=== PATIENT | male | born 1970 | race Caucasian/White ===

== ENCOUNTER 2022-12-10 09:23 | Emergency (ER) | payer MEDICAID, SELFPAY ==
[2022-12-10 09:23] VITALS: BP 146/92
[2022-12-10 09:24] VITALS: PULSE 78; RESP 14; TEMP 36.1; O2SAT 97; BMI 28.4
--- NOTE | 2022-12-10 10:12 | ED.VIS.BACK ---
HPI History of Present Illness Chief Complaint: Back Detail of Chief Complaint: Back pain Informant: patient Onset/Context/Timing Onset: Weeks (Approximately 2 to 3 weeks ago) Context: Sudden Onset Injury: bending and work related Timing: Continuous Quality: Dull and Aching Location: Thoracic, Lumbar, Buttock, Right Leg and Left Leg Current Severity: Mild Maximum Severity: Severe Worsened by: improves with Movement, Ambulation, Lifting and Night time pain Relieved by: Nothing Associated Symptoms Associated Symptoms: - (He denies saddle anesthesia. He denies foot drop. He denies buckling of his knees going up or down steps.); Negative for Numbness, Tingling, Radiation to Right Leg, Radiation to Left Leg, Abdominal Pain, Dysuria, Unable to Ambulate, Unable to Transfer, Urinary Retention, Urinary Incontinence, Constipation or Fecal Incontinence Narrative Narrative: Patient is a 52-year-old male with no significant past medical history who presents with low back pain. He was holding drywall. 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 He attempted to prevent the drywall/sheet rock from hitting the floor injuring his back. He states this occurred at work. He states he is not claiming Worker's Comp. He denies bowel bladder dysfunction. No saddle paresthesia anesthesia. Denies radicular pain. Denies foot drop. Denies buckling of his knees going up or down steps. Prior similar symptoms: Yes Recent Illness/Hospitalization: No PFSH PFSH Medical History no medical history no medical history Home Medications naproxen 500 mg tablet (Naprosyn) 500 mg PO BID PRN pain #20 tabs 12/10/22 [Rx Last Taken Unknown] Allergy/AdvReac Type Severity Reaction Status Date / Time No Known Allergies Allergy Verified 12/10/22 09:24 Surgical History no surgical history no surgical history Social History (Updated 12/10/22 @ 10:[address] Rm Enriquez MD) household members: none Smoking Status: Current every day smoker tobacco type: cigarettes substance use type: does not use ROS ROS ED Constitutional Constitutional ED: Denies chills, fever(s), subjective or sweats Eyes Eyes: Denies blurry vision or change in vision ENT ENT ED: Denies ear pain or rhinorrhea Cardiovascular Cardiovascular: Denies chest pain or palpitations Respiratory/Chest Respiratory/Chest: Denies dyspnea or dyspnea on exertion Gastrointestinal Gastrointestinal: Denies abdominal pain, constipation, nausea or vomiting Genitourinary Genitourinary ED: Denies dysuria, hematuria or urinary frequency Musculoskeletal Musculoskeletal: Reports back pain and other Details: Detailed in the HPI portion of the chart ; Denies arthralgias, myalgias or neck pain Neurologic Neurologic: Denies headache(s), paresthesias or weakness Hematologic/Lymphatic Hematologic/Lymphatic: Denies easy bleeding or easy bruising EXAM Physical Exam Const Vital Signs: 12/10/22 09:24 12/10/22 09:23 Temperature 97.0 F L Temperature Source Temporal Pulse Rate 78 Respiratory Rate 14 Blood Pressure 146/92 H Blood Pressure Mean 110 Pulse Ox 97 Oxygen Delivery Method Room Air Positive well nourished, well developed and unkempt General Appearance ED: unkempt and well developed; Negative for NAD or pallor HEENT Reports moist mucous membranes HEENT Narrative: Head is atraumatic normocephalic. Ears normal. Nares patent. Posterior pharynx is normal. Eyes PERRL and EOMs intact bilaterally Neck no lymphadenopathy, supple and no JVD Resp normal respiratory effort and clear to auscultation bilaterally Cardio regular rate, regular rhythm, S1 normal heart sound, S2 normal heart sound and no murmurs GI normal to inspection, nondistended, normoactive bowel sounds, soft to palpation, non-tender, non-distended and no masses GI Narrative: There is no palpable pulsatile mass no abdominal bruit. Back/Spine normal to inspection; Negative for no thoracic nor lumbar tenderness Back/Spine Narrative: Patella and ankle reflex are 2+. Gait observed and normal. There is no foot drop. Able to walk on heels and toes. Able to perform a 1 legged squat right and left. Normal sensation over L3, L4, L5 and S1 dermatome. Bending to right and left predominately causes pain on the left side. Standing on his right foot causes him pain on the left side. General Back: Negative for CVA tenderness Cervical Spine: Negative for cervical spine tenderness Thoracic Spine / Upper Back: paraspinal muscle tenderness Lumbar Spine / Lower Back: ROM limited and straight leg raise negative bilaterally Extremity normal to inspection and no clubbing, cyanosis or edema Extremity Narrative: Distal pulses are noted. He does have hair on his toes. Neuro oriented x3 and no sensory deficits noted Sensorium / Orientation: alert Motor Exam: strength 5/5 throughout Deep Tendon Reflexes: Rt Patellar (L4): 2+, Lt Patellar (L4): 2+, Rt Ankle (S1): 2+ and Lt Ankle (S1): 2+ Deep Tendon Reflexes Back: Rt Patellar (L4): 2+, Lt Patellar (L4): 2+, Rt Ankle (S1): 2+ and Lt Ankle (S1): 2+ Plantar Reflex: Downgoing: bilateral (There is no clonus.) Psych mental status grossly normal Appearance: unkempt Skin no rashes or lesions noted and no wounds General Skin Exam: Negative for jaundice or pallor MDM MDM MDM Narrative Medical decision making narrative: Patient presents with back pain. Differential diagnosis is muscle strain, fracture, herniated disc. Based on history and physical this is muscular pain. Patient does not meet criteria or indication for emergent MRI. Since patient does not have contraindication NSAIDs he was treated with Naprosyn. He was instructed ice and not heat. History & Record Review Additional record(s) reviewed:: Prior inpatient record (There are no inpatient notes.), Prior outpatient record, Prior ED visit (There are several ER visits over the years for musculoskeletal issues.) and Prior labs (There is no evidence of renal insufficiency.) Discharge Plan Triage Chief Complaint: Back ED Provider: Rm Enriquez Dx/Rx/DC Orders Clinical Impression: Acute myofascial strain of lumbar region, Elevated blood pressure reading Prescriptions: New naproxen [Naprosyn] 500 mg tablet 500 mg PO BID PRN (Reason: pain) Qty: 20 0RF Stand Alone Forms: ED Work / School Excuse Primary Care Provider: Care Physician,No Primary Referrals: Care Physician,No Primary [Primary Care Provider] - Doctor,Your [Non-Staff] - 3-5 Days if not improving Activity Restrictions/Additional Instructions: 1. Apply ice to your lower back 6-10 times a day. 2. Application of heat will make your pain worse. 3. Take medication as prescribed 4. If you are unable to urinate or have loss of bowel control or difficulty using your right or left leg return to the emergency department 5. The name of your doctor is located on your insurance card issued to you by [facility] Disposition Disposition: Home, Self Care
== END 2022-12-10 10:36 | disposition home or self-care (01) ==
PROVIDERS: Emergency Provider Emergency Medicine; Visit Provider Emergency Medicine
DX: S39.012A Strain of muscle, fascia and tendon of lower back, initial encounter (principal); F17.210 Nicotine dependence, cigarettes, uncomplicated; R03.0 Elevated blood-pressure reading, without diagnosis of hypertension; Y99.0 Civilian activity done for income or pay
CPT/HCPCS: 99282; A4216

== ENCOUNTER 2022-12-28 08:45 | Emergency (ER) | payer MEDICAID, SELFPAY ==
[2022-12-28 08:46] VITALS: BP 140/118; PULSE 66; RESP 18; TEMP 36.6; O2SAT 99; BMI 27.9
--- NOTE | 2022-12-28 08:57 | EDS_ITS ---
HPI History of Present Illness Chief Complaint: Lower Extremity Injury Informant: patient Narrative Narrative: Patient presents still having pain in his back. He states he twisted when he tried to catch a falling piece of drywall about 3 weeks ago. He was seen here once. He has been seen twice in the chiropractor office. He states he has pain in the lower back the right hip area and sometimes down the right leg. He has no bowel or bladder dysfunction. He is eating and drinking normally. He has not had any weakness. No fevers chills or recent infections. He was given a prescription for Naprosyn. Now he is just taking some [id number] Motrin. He has no history of major back issues. He has never had surgeries. He is on no meds for anything else. He states bending makes it hurt more. [facility] Medical History (Updated 12/28/22 @ 10:[address] Rufus Bourne MD) Opiate addiction Home Medications naproxen 500 mg tablet (Naprosyn) 500 mg PO BID PRN pain #20 tabs 12/10/22 [Rx Last Taken Unknown] amlodipine 5 mg tablet 5 mg PO DAILY #30 tabs 12/28/22 [Rx Last Taken Unknown] cyclobenzaprine 10 mg tablet 10 mg PO TID PRN Muscle Spasm #20 TABLETS 12/28/22 [Rx Last Taken Unknown] prednisone 20 mg tablet 60 mg PO DAILY #15 TABLETS 12/28/22 [Rx Last Taken Unknown] Allergy/AdvReac Type Severity Reaction Status Date / Time No Known Allergies Allergy Verified 12/28/22 08:48 Social History household members: none Smoking Status: Current every day smoker tobacco type: cigarettes substance use type: does not use ROS ROS ED ROS Narrative A complete review of systems was performed and is negative except as documented in the history of present illness. Some specific details below. Constitutional: No recent fevers or chills. No rigors. Patient has not generally felt ill. No infections. EYE: No discharge, visual complaints, or pain. ENT: No sinus pressure or pain. No nasal discharge. CV: No chest pain, pressure or aching. No palpitations or irregular beats. Patient has not been presyncopal or syncopal. Respiratory: No trouble breathing. No cough. No wheezing. No sputum production. No pain with breathing. GI: No abdominal pain. No nausea vomiting diarrhea. No blood in stool. No loss of bowel control. No history of AAA. Appetite and eating is normal. : No frequency dysuria or hematuria. No incontinence or urinary retention. No history of kidney stones Musculoskeletal: No recent trauma. No swelling. Please see history of present illness. Skin: No rash. No diaphoresis. No vesicles. Neuro: No weakness or numbness. No pain radiating down leg past the knee. No we akness of ambulation. No sensory changes in the extremities. Please see history of present illness also. He does have some pain that radiates but is really down the right buttock and a little bit of the thigh area. No further. Endocrine: No polyuria or polydipsia. EXAM Physical Exam Narrative Exam Narrative: CONSTITUTIONAL: Patient is nontoxic in appearance. The patient looks comfortable. Work of breathing looks normal. HEENT: No notable trauma. Mucous membranes moist. No sinus tenderness. No sign of dental infection. EYES: No conjunctival injection. No pallor. NECK: No meningismus. No JVD. CARDIOVASCULAR: Regular rate. Regular rhythm. No notable murmur. No JVD. RESPIRATORY: No respiratory distress. Breathing is unlabored. No wheezes. No rhonchi. No rales. No pain with a deep breath. GASTROINTESTINAL: Not distended. Bowel sounds are normal. No tenderness. No guarding. No rebound. No palpable mass. No bruit. GENITOURINARY: No tenderness over the bladder. No CVA tenderness. MUSCULOSKELETAL: Atraumatic. No peripheral edema. No cord. No tenderness along the deep venous system. No asymmetry. Distal pulses are intact. NEUROLOGICAL: Patient is alert and oriented. No focal deficit noted. Distal sensation is intact Patient can stand on toes and heels and do squats. He is able to get up off the bed and back on by himself without difficulties. Patellar reflex 2+ bilaterally and equal. Achilles reflex also 2+ bilateral and equal SKIN: No noted rashes. No diaphoresis. No vesicles noted. No notable pallor. PSYCHIATRIC: Patient is calm. Mood is appropriate. Const Vital Signs: 12/28/22 08:46 Temperature 97.9 F Temperature Source Temporal Pulse Rate 66 Respiratory Rate 18 Blood Pressure 140/118 H Blood Pressure Mean 125 Pulse Ox 99 Oxygen Delivery Method Room Air MDM MDM MDM Narrative Medical decision making narrative: Because the symptoms have been going on for 3 or so weeks, we will do x-ray at this point. My independent her potation the patient's three-view x-ray of the lumbar spine shows some mild arthritic changes but no acute bony process. Mild increased stool. Final reading is spondylosis throughout the spine but no acute abnormality is seen. Patient's recheck. He is actually sitting very comfortably in bed. I will try him on Flexeril and a short course of prednisone. I did do an online prescribing report and he has no narcotics prescribed. None in the last 2 years. His sister was concerned about potential narcotic seeking because evidently he has a history of drug use. But I think the patient is actually having sciatica pain is just seeking relief. But I do not think narcotics are needed at this time. Patient's blood pressure is also up here. He states it is up every time he goes into the doctor. He has been told he needs to be on medicines. Since this is a recurrent longstanding issue I think is reasonable to get him started on low-dose. But we discussed that he has to follow-up. This is not a one-time treatment. This may be lifelong. But he needs follow-u p, a private physician, and ongoing care. I will give him a referral. Radiography Diagnostic Testing: Clinical Impression(s) from Imaging Studies Lumbar Spine X-Ray 12/28/22 09:00 IMPRESSION: Spondylosis throughout the spine. No acute abnormality is seen. Electronically Signed: Irwin Almaraz MD at 10:05 EDT , Discharge Plan Triage Chief Complaint: Lower Extremity Injury ED Provider: Rufus Bourne Dx/Rx/DC Orders Clinical Impression: Sciatic leg pain, Elevated blood pressure reading Instructions: ED Hypertension, To Be Confirmed, ED Sciatica Prescriptions: New cyclobenzaprine [cyclobenzaprine] 10 mg tablet 10 mg PO TID PRN (Reason: Muscle Spasm) Qty: 20 0RF prednisone 20 mg tablet 60 mg PO DAILY Qty: 15 0RF amlodipine 5 mg tablet 5 mg PO DAILY Qty: 30 0RF No Action naproxen [Naprosyn] 500 mg tablet 500 mg PO BID PRN (Reason: pain) Qty: 20 0RF Primary Care Provider: Care Physician,No Primary Referrals: Newton Bansal MD [Med Staff - Active Staff] - 1 Week Care Physician,No Primary [Primary Care Provider] - Disposition Disposition: Home, Self Care
--- NOTE | 2022-12-28 09:00 | RAD_ITS ---
STUDY: X-RAY - LUMBAR SPINE REASON FOR EXAM: Male, 52 years old. Trauma, pain TECHNIQUE: 3 view(s) of the lumbar spine were obtained. COMPARISON: None FINDINGS: Normal lumbar lordosis. There is no substantial scoliosis. There is a normal alignment of the vertebrae. There is multilevel endplate spondylosis of the lumbar vertebrae. Normal disc space heights. Large amount of fecal material is seen in the colon. RAD/Lumbar Spine 2 or 3 Views IMPRESSION: Spondylosis throughout the spine. No acute abnormality is seen. Electronically Signed: Irwin Almaraz MD at 10:05 EDT ,
[2022-12-28 10:56] VITALS: BP 152/87; PULSE 81; RESP 16; O2SAT 97
== END 2022-12-28 10:57 | disposition home or self-care (01) ==
PROVIDERS: Emergency Provider Emergency Medicine; Referring Provider Emergency Medicine; Visit Provider Emergency Medicine
DX: M54.32 Sciatica, left side (principal); R03.0 Elevated blood-pressure reading, without diagnosis of hypertension; F17.210 Nicotine dependence, cigarettes, uncomplicated; X58.XXXA Exposure to other specified factors, initial encounter
CPT/HCPCS: 72100; 99282